=== PATIENT | female | born 1995 | race Caucasian/White ===

== ENCOUNTER 2020-02-29 12:08 | Outpatient (REF) | payer OTHER, SELFPAY | END 2020-02-29 12:09 | disposition home or self-care (01) | LOC: HO.LAB 12:08 | PROVIDERS: Visit Provider Internal Medicine | DX: Z20.828 Contact with and (suspected) exposure to other viral communicable diseases (principal) | CPT/HCPCS: 87635 ==

== ENCOUNTER 2020-03-25 08:21 | Outpatient (REF) | payer OTHER, SELFPAY | END 2020-03-25 08:22 | disposition home or self-care (01) | LOC: HO.LAB 08:21 | PROVIDERS: Visit Provider Internal Medicine | DX: Z20.828 Contact with and (suspected) exposure to other viral communicable diseases (principal) | CPT/HCPCS: C9803; U0003 ==

== ENCOUNTER 2020-04-03 15:49 | Outpatient (REF) | payer OTHER, SELFPAY | END 2020-04-03 15:50 | disposition home or self-care (01) | LOC: HO.LAB 15:49 | PROVIDERS: Visit Provider Internal Medicine | DX: Z20.828 Contact with and (suspected) exposure to other viral communicable diseases (principal) | CPT/HCPCS: C9803; U0003 ==